=== PATIENT | female | born 1970 | race Caucasian/White ===

== ENCOUNTER 2016-06-30 11:37 | Emergency (ER) | payer OTHER ==
[2016-06-30 13:37] LABS: HEMOGLOBIN 11.9 gm/dl (12.3-15.3); RED BLOOD COUNT 4.32 M/UL (4.00-5.10); WHITE BLOOD COUNT 7.8 K/UL (4.5-11.0)
[2016-06-30 14:01] LABS: BUN/CREATININE RATIO 14 (0-10)
[2016-09-07] MEDS ORDERED: MOBIC7.5 MG PO (21:40)
[2016-09-07] MEDS ORDERED: NORVASC 5 MG TAB5 MG PO (21:40)
[2016-09-07] MEDS ORDERED: LOTENSIN TAB 1010 MG PO (21:40)
[2016-09-07] MEDS ORDERED: LOPRESSOR100 MG PO (21:41)
[2016-09-07] MEDS ORDERED: SINGULAIR10 MG PO (21:41)
[2016-09-07] MEDS ORDERED: CLARITIN10 M2 PO (21:41)
[2016-09-07] MEDS ORDERED: ALPRAZOLAM0.5 MG PO (21:42)
[2016-09-08] MEDS ORDERED: LOPRESSOR 50 MG50 MG PO (20:57)
[2016-09-08] MEDS ORDERED: TYLENOL 325MG325 MG PO (20:58)
[2016-09-08] MEDS ORDERED: THERAGRAN M TAB1 EA PO (20:59)
[2016-09-08] MEDS ORDERED: SYNTHROID25 MCG PO (21:00)
== END 2016-06-30 16:30 | disposition home or self-care (01) ==
LOC: ER1 11:37
PROVIDERS: Physician Assistant
DX: R42 Dizziness and giddiness (principal); R00.2 Palpitations; R53.83 Other fatigue; I10 Essential (primary) hypertension; J45.909 Unspecified asthma, uncomplicated; Z88.1 Allergy status to other antibiotic agents; Z91.09 Other allergy status, other than to drugs and biological substances
CPT/HCPCS: 36415; 70450; 71010; 80053; 81001; 82550; 82553; 83874; 84443; 84484; 84703; 85025; 93005; 96360; 96361; 99285

== ENCOUNTER → 2020-03-21 | Outpatient (CLI) | payer OTHER ==
[~2020-03-21] MED LIST: ALPRAZOLAM0.5 MG PO; ASPIRIN CHEWABL81 MG PO; ASPIRIN81 MG PO; AYGESTIN5 MG PO; CATAPRES 0.1MG0.1 MG PO; CLARITIN10 M2 PO; GLUCOPHAGE500 MG PO; LOPRESSOR 50 MG50 MG PO; LOPRESSOR100 MG PO; LOTENSIN TAB 1010 MG PO; MACROBID 100 M100 M1 PO; MOBIC7.5 MG PO; NITROSTAT0.4 MG SL; NORVASC 5 MG TAB5 MG PO; NORVASC10 MG PO; SINGULAIR10 MG PO; SYNTHROID25 MCG PO; THERAGRAN M TAB1 EA PO; TYLENOL 325MG325 MG PO; ZOFRAN ODT 4 MG4 MG PO
== END ==
LOC: SLEEP 11:23
DX: G47.33 Obstructive sleep apnea (adult) (pediatric) (principal)
CPT/HCPCS: 95810

== ENCOUNTER 2020-12-14 07:36 | Observation (INO) | payer OTHER ==
[~2020-12-14] VITALS: Ht 162.6 cm; Wt 104.3 kg
[~2020-12-14 07:36] MED LIST changes: +MOBIC15 MG PO; -SYNTHROID25 MCG PO; +SYNTHROID50 MCG PO
[2020-12-14 08:06] LABS: HEMOGLOBIN 12.5 gm/dl (12.3-15.3); RED BLOOD COUNT 4.36 M/UL (4.00-5.10); WHITE BLOOD COUNT 5.6 K/UL (4.5-11.0)
[2020-12-14 08:30] LABS: BUN/CREATININE RATIO 9 (0-10)
[2020-12-14] MEDS ORDERED: PREGABALIN150 MG PO (09:52)
[2020-12-14] MEDS ORDERED: VITAMIN D21250 MCG PO (09:53)
[2020-12-14] MEDS ORDERED: PROAIR HFA8.5 GM INH (09:55)
[2020-12-14] MEDS ORDERED: FLONASE 0.05% N16 GM (09:55)
[2020-12-14] MEDS ORDERED: PRAVASTATIN SOD40 MG PO (09:55)
[2020-12-14] MEDS ORDERED: XANAX0.5 MG PO (09:57)
--- NOTE | 2020-12-15 04:20 | NUR ---
12/14/20 2100 REFUSED BLOOD GLUCOSE STICK
--- NOTE | 2020-12-15 04:20 | NUR ---
12/15/20 0400 REFUSES AM LABS THIS MORNING
[2020-12-15 08:18] LABS: RED BLOOD COUNT 4.16 M/UL (4.00-5.10); WHITE BLOOD COUNT 5.4 K/UL (4.5-11.0)
[2020-12-15 08:43] LABS: BUN/CREATININE RATIO 10 (0-10)
== END 2020-12-15 15:54 | disposition home or self-care (01) ==
LOC: ER1 07:36 → MED SURG 4 09:16 → CDU 09:16 → MED SURG 4 11:14
PROVIDERS: Emergency Medicine; Physician Assistant; ADMIT Internal Medicine
DX: R42 Dizziness and giddiness (principal); R55 Syncope and collapse; E11.9 Type 2 diabetes mellitus without complications; I10 Essential (primary) hypertension; E78.5 Hyperlipidemia, unspecified; E66.9 Obesity, unspecified; F41.9 Anxiety disorder, unspecified; Z88.1 Allergy status to other antibiotic agents; Z79.899 Other long term (current) drug therapy; Z20.822 Contact with and (suspected) exposure to COVID-19
CPT/HCPCS: ECHO; 70450; 70551; 71045; 80048; 80053; 82550; 82553; 82962; 83036; 83874; 84484; 85025; 93005; 93306; 93880; 96374; 99285; G0378; J2405; U0002